=== PATIENT | male | born 1985 ===

== ENCOUNTER 2020-11-05 03:53 | Emergency (ER) | payer SELFPAY ==
[2020-11-05 05:13] LABS: Absolute Lymphocytes (CBC) 2.2 K/uL (0.7-4.9); Basophils % 0.5 % (0-1.3); Hematocrit 42.3 % (39.6-49.0); Lymphocytes % 37.7 % (15.3-44.8); MPV 11.3 fL (7.6-11.3); RBC Red Blood Cell Count 4.51 M/uL (4.33-5.43)
[2020-11-05 05:27] LABS: Protime INR 0.91
[2020-11-05 05:37] LABS: ALT/SGPT 40 U/L (12-78); AST/SGOT 14 U/L (15-37); Albumin 3.6 g/dL (3.4-5.0); Alkaline Phosphatase 75 U/L (45-117); BUN Blood Urea Nitrogen 13 mg/dL (7-18); Bicarbonate 26 mmol/L (21-32); Bilirubin Direct 0.1 mg/dL (0-0.2); Bilirubin Total 0.4 mg/dL (0.2-1.0); Glucose Level 115 mg/dL (74-106); Magnesium 1.9 mg/dL (1.8-2.4); NT PRO-BNP 20 pg/mL (<125); Potassium 3.5 mmol/L (3.5-5.1); Sodium Level 142 mmol/L (136-145); Troponin (Emerg Dept Use Only) < 0.02 ng/mL (0.0-0.045)
--- NOTE | 2020-11-05 06:14 | ER ---
Nurse's Notes [facility] Name: Khoa Smith Age: 35 yrs Sex: Male : 1985 Arrival Date: 11/05/2020 Time: 03:57 Bed 17 Private MD: Diagnosis: Anxiety Reaction, Resolved;Dyspnea-Resolved Presentation: 11/05 04:11 Chief complaint: Patient states: he woke up tonight feeling like he can't breath right bb he also had a similar incident about a month ago after his dad of COVID and he feels anxious. Coronavirus screen: At this time, the client does not indicate any symptoms associated with coronavirus-19. Ebola Screen: No symptoms or risks identified at this time. Initial Sepsis Screen: Does the patient meet any 2 criteria? No. Patient's initial sepsis screen is negative. Does the patient have a suspected source of infection? No. Patient's initial sepsis screen is negative. Risk Assessment: Do you want to hurt yourself or someone else? Patient reports no desire to harm self or others. Onset of symptoms was November 05, 2020. 04:11 Method Of Arrival: Ambulatory bb 04:11 Acuity: ELIZABETH 3 bb Historical: - Allergies: 04:14 No Known Allergies; bb - Home Meds: 04:14 None [Active]; bb - PMHx: 04:14 None; bb - PSHx: 04:14 None; bb - Immunization history:: Adult Immunizations unknown. - Social history:: Smoking status: Patient denies any tobacco usage or history of. Patient/guardian denies using alcohol. Screenin:55 Abuse screen: Denies threats or abuse. Denies injuries from another. Nutritional sf screening: No deficits noted. Tuberculosis screening: No symptoms or risk factors identified. Never had TB. Possible symptoms: None Risk factors: None. Fall Risk None identified. No fall in past 12 months (0 pts). No secondary diagnosis (0 pts). IV access (20 points). Ambulatory Aid- None/Bed Rest/Nurse Assist (0 pts). Gait- Normal/Bed Rest/Wheelchair (0 pts) Mental Status- Oriented to own ability (0 pts). Total Lechuga Fall Scale indicates No Risk (0-24 pts). Assessment: 04:55 General: Appears in no apparent distress. comfortable, Behavior is calm, cooperative. sf Pain: Denies pain. Neuro: No deficits noted. Level of Consciousness is awake, alert, Oriented to person, place, time, situation. Cardiovascular: No deficits noted. Patient's skin is warm and dry. Rhythm is sinus rhythm. Respiratory: No deficits noted. Airway is patent Respiratory effort is even, unlabored, Respiratory pattern is regular, symmetrical. GI: No deficits noted. No signs and/or symptoms were reported involving the gastrointestinal system. : No deficits noted. No signs and/or symptoms were reported regarding the genitourinary system. Derm: No deficits noted. No signs and/or symptoms reported regarding the dermatologic system. Musculoskeletal: No deficits noted. No signs and/or symptoms reported regarding the musculoskeletal system. 05:39 Reassessment: Patient appears in no apparent distress at this time. No changes from previously documented assessment. Patient and/or family updated on plan of care and expected duration. Pain level reassessed. Patient is alert, oriented x 3, equal unlabored respirations, skin warm/dry/pink. Vital Signs: 04:11 BP 146 / 94; Pulse 70; Resp 20 S; Temp 98.3(O); Pulse Ox 100% on R/A; Weight 96.62 kg bb (R); Height 5 ft. 8 in. (172.72 cm) (R); Pain 0/10; 04:30 BP 144 / 81; Pulse 68; Resp 16; Pulse Ox 100% ; sf 05:00 BP 142 / 83; Pulse 61; Resp 16; Pulse Ox 100% ; sf 05:30 BP 132 / 89; Pulse 71; Resp 16; Pulse Ox 100% ; sf 06:00 BP 131 / 84; Pulse 62; Resp 16; Pulse Ox 98% ; sf 06:30 BP 144 / 82; Pulse 67; Resp 16; Pulse Ox 99% ; sf 04:11 Body Mass Index 32.39 (96.62 kg, 172.72 cm) ED Course: 03:57 Patient arrived in ED. bp1 04:02 Ramu Bellamy MD is Attending Physician. mh7 04:14 Triage completed. bb 04:14 Arm band placed on Patient placed in an exam room, on a stretcher, on pulse oximetry. bb Family accompanied patient. 04:41 Benton Cobos RN is Primary Nurse. sf 04:55 Patient has correct armband on for positive identification. Bed in low position. Call sf light in reach. Side rails up X 1. property assessment monitor on. Pulse ox on. NIBP on. Door closed. Noise minimized. Visitors limited. Lights dimmed. Warm blanket given. Verbal reassurance given. 04:55 Inserted saline lock: 20 gauge in right antecubital area, using aseptic technique. oe Blood collected. 04:57 X-ray(s) taken. sf 04:58 Basic Metabolic Panel Sent. sf 04:58 CBC with Diff Sent. sf 04:58 LFT's Sent. sf 04:58 XRAY Chest (1 view) Sent. sf 05:05 XRAY Chest (1 view) In Process Unspecified. EDMS 06:46 No provider procedures requiring assistance completed. IV discontinued, intact, sf bleeding controlled, No redness/swelling at site. Pressure dressing applied. Administered Medications: No medications were administered Outcome: 06:14 Discharge ordered by . kim 06:46 Discharged to home ambulatory, with friend. sf 06:46 Condition: stable 06:46 Discharge instructions given to patient, friend, Instructed on discharge instructions, follow up and referral plans. Demonstrated understanding of instructions, follow-up care. 06:47 Patient left the ED. sf Signatures: Dispatcher [employer] EDMS Stefany Medina, RN RN Carlos Paula Brittany bp1 Holmes, Maurice, MD MD Benton Mendez RN RN sf
--- NOTE | 2020-11-05 06:15 | EDPHYS ---
Physician Documentation [facility] Name: Khoa Smith Age: 35 yrs Sex: Male : 1985 Arrival Date: 11/05/2020 Time: 03:57 Bed 17 Private MD: ED Physician Ramu Bellamy HPI: 11/05 05:00 This 35 yrs old Male presents to ER via Ambulatory with complaints of Breathing mh7 Difficulty. 05:00 The patient has shortness of breath at rest, during emotionally upset. Onset: The mh7 symptoms/episode began/occurred today. Duration: The symptoms are intermittent, with no pattern. The patient's shortness of breath is aggravated by nothing, is alleviated by nothing. Associated signs and symptoms: Pertinent positives: felt cold, anxious, Pertinent negatives: chest pain, non-productive cough, productive cough, diaphoresis, dizziness, fever, hemoptysis, loss of consciousness, nausea, numbness in extremities, visual changes, vomiting. Severity of symptoms: At their worst the symptoms were moderate today, in the emergency department the symptoms have improved markedly. Historical: - Allergies: 04:14 No Known Allergies; bb - Home Meds: 04:14 None [Active]; bb - PMHx: 04:14 None; bb - PSHx: 04:14 None; bb - Immunization history:: Adult Immunizations unknown. - Social history:: Smoking status: Patient denies any tobacco usage or history of. Patient/guardian denies using alcohol. ROS: 05:00 Eyes: Negative for injury, pain, redness, and discharge, ENT: Negative for injury, mh7 pain, and discharge, Neck: Negative for injury, pain, and swelling, Cardiovascular: Negative for chest pain, palpitations, and edema, Abdomen/GI: Negative for abdominal pain, nausea, vomiting, diarrhea, and constipation, Back: Negative for injury and pain, : Negative for injury, bleeding, discharge, and swelling, MS/Extremity: Negative for injury and deformity, Skin: Negative for injury, rash, and discoloration, Neuro: Negative for headache, weakness, numbness, tingling, and seizure, Psych: Negative for depression, anxiety, suicide ideation, homicidal ideation, and hallucinations, Allergy/Immunology: Negative for hives, rash, and allergies, Endocrine: Negative for neck swelling, polydipsia, polyuria, polyphagia, and marked weight changes, Hematologic/Lymphatic: Negative for swollen nodes, abnormal bleeding, and unusual bruising. 05:00 Constitutional: Negative for fatigue, fever, malaise, poor PO intake, weight loss. Exam: 05:00 Head/Face: Normocephalic, atraumatic. Eyes: Pupils equal round and reactive to light, mh7 extra-ocular motions intact. Lids and lashes normal. Conjunctiva and sclera are non-icteric and not injected. Cornea within normal limits. Periorbital areas with no swelling, redness, or edema. Neck: Trachea midline, no thyromegaly or masses palpated, and no cervical lymphadenopathy. Supple, full range of motion without nuchal rigidity, or vertebral point tenderness. No Meningismus. Chest/axilla: Normal chest wall appearance and motion. Nontender with no deformity. No lesions are appreciated. Cardiovascular: Regular rate and rhythm with a normal S1 and S2. No gallops, murmurs, or rubs. Normal PMI, no JVD. No pulse deficits. Respiratory: Lungs have equal breath sounds bilaterally, clear to auscultation and percussion. No rales, rhonchi or wheezes noted. No increased work of breathing, no retractions or nasal flaring. Abdomen/GI: Soft, non-tender, with normal bowel sounds. No distension or tympany. No guarding or rebound. No evidence of tenderness throughout. Back: No spinal tenderness. No costovertebral tenderness. Full range of motion. Skin: Warm, dry with normal turgor. Normal color with no rashes, no lesions, and no evidence of cellulitis. MS/ Extremity: Pulses equal, no cyanosis. Neurovascular intact. Full, normal range of motion. Neuro: Awake and alert, GCS 15, oriented to person, place, time, and situation. Cranial nerves II-XII grossly intact. Motor strength 5/5 in all extremities. Sensory grossly intact. Cerebellar exam normal. Normal gait. 05:00 Constitutional: The patient appears in no acute distress, alert, awake, anxious. 05:00 Psych: Behavior/mood is cooperative, anxious, Affect is calm, Oriented to person, place, time, Patient has no thoughts/intents to harm self or others. Judgement / Insight is normal. Memory is normal. Delusions/hallucinations are not present. Vital Signs: 04:11 BP 146 / 94; Pulse 70; Resp 20 S; Temp 98.3(O); Pulse Ox 100% on R/A; Weight 96.62 kg bb (R); Height 5 ft. 8 in. (172.72 cm) (R); Pain 0/10; 04:30 BP 144 / 81; Pulse 68; Resp 16; Pulse Ox 100% ; sf 05:00 BP 142 / 83; Pulse 61; Resp 16; Pulse Ox 100% ; sf 05:30 BP 132 / 89; Pulse 71; Resp 16; Pulse Ox 100% ; sf 06:00 BP 131 / 84; Pulse 62; Resp 16; Pulse Ox 98% ; sf 06:30 BP 144 / 82; Pulse 67; Resp 16; Pulse Ox 99% ; sf 04:11 Body Mass Index 32.39 (96.62 kg, 172.72 cm) MDM: 06:11 Differential diagnosis: Anemia Anxiety Reaction asthma, Bronchitis CHF exacerbation, [facility] Chronic Obstructive Pulmonary Disease Myocardial Infarction pneumonia, Pneumothorax Psychogenic pulmonary edema, reactive airway disease. Data reviewed: vital signs, nurses notes, lab test result(s), cardiac enzymes, CBC, electrolytes, EKG, radiologic studies, plain films. Data interpreted: Pulse oximetry: on room air is 100 %. Interpretation: normal. Counseling: I had a detailed discussion with the patient and/or guardian regarding: the historical points, exam findings, and any diagnostic results supporting the discharge/admit diagnosis, lab results, radiology results, the need for outpatient follow up, to return to the emergency department if symptoms worsen or persist or if there are any questions or concerns that arise at home. Response to treatment: the patient's symptoms have resolved after treatment, the patient's blood pressure is in an acceptable range, mental status has returned to baseline, the patient no longer shows bradycardia, the patient is not short of breath, the patient is not tachycardic, the patient's pain is gone, the patient's temperature has normalized, the patient is now symptom free, patient is well hydrated. 06:14 Patient medically screened. [facility] 11/05 04:27 Order name: Basic Metabolic Panel [facility] 11/05 04:27 Order name: CBC with Diff [facility] 11/05 04:27 Order name: LFT's [facility] 11/05 04:27 Order name: Magnesium; Complete Time: 05:50 [facility] 11/05 04:27 Order name: NT PRO-BNP; Complete Time: 05:50 7 11/05 04:27 Order name: PT-INR; Complete Time: 05:36 [facility] 11/05 04:27 Order name: Troponin (emerg Dept Use Only); Complete Time: 05:50 7 11/05 04:27 Order name: XRAY Chest (1 view) [facility] 11/05 04:27 Order name: EKG; Complete Time: 04:28 [facility] 11/05 04:28 Order name: Basic Metabolic Panel; Complete Time: 05:50 [facility] 11/05 04:28 Order name: CBC with Automated Diff; Complete Time: 05:36 [facility] 11/05 04:28 Order name: Liver (Hepatic) Function; Complete Time: 05:50 [facility] 11/05 05:58 Order name: SARS-COV-2 RT PCR; Complete Time: 06:08 [facility] 11/05 04:27 Order name: Cardiac monitoring; Complete Time: 04:41 [facility] 11/05 04:27 Order name: EKG - Nurse/Tech; Complete Time: 04:58 [facility] 11/05 04:27 Order name: IV Saline Lock; Complete Time: 04:58 7 11/05 04:27 Order name: Labs collected and sent; Complete Time: 04:58 [facility] 11/05 04:27 Order name: O2 Per Protocol; Complete Time: 04:41 7 11/05 04:27 Order name: O2 Sat Monitoring; Complete Time: 04:41 mh7 Administered Medications: No medications were administered Disposition: 11/05/20 06:14 Discharged to Home. Impression: Anxiety Reaction, Resolved, Dyspnea - Resolved. - Condition is Stable. - Discharge Instructions: Shortness of Breath, [id number], Panic Attacks, [id number]. - Medication Reconciliation Form, Thank You Letter, Antibiotic Education, Prescription Opioid Use form. - Follow up: Private Physician; When: 1 - 2 days; Reason: Worsening of condition, Recheck today's complaints, Continuance of care, Re-evaluation by your physician. - Problem is new. - Symptoms have improved. Signatures: Dispatcher [facility] Stefany Medina RN RN Ramu Bellamy MD MD [facility] Cobos, Benton, RN RN sf Corrections: (The following items were deleted from the chart) 05:07 04:28 CORONAVIRUS+MR.LAB.BRZ ordered. EDMT EDMS 06:47 06:14 11/05/2020 06:14 Discharged to Home. Impression: Anxiety Reaction, Resolved; sf Dyspnea - Resolved. Condition is Stable. Forms are Medication Reconciliation Form, Thank You Letter, Antibiotic Education, Prescription Opioid Use. Follow up: Private Physician; When: 1 - 2 days; Reason: Worsening of condition, Recheck today's complaints, Continuance of care, Re-evaluation by your physician. Problem is new. Symptoms have improved. mh7
[2020-11-05 08:35] VITALS: BP 146/94; TEMP 98.3; O2SAT 100
--- NOTE | 2020-11-06 07:16 | EKG ---
Test Date: 2020-11-05 Test Time: 04:40:49 Food Stand Manager: CECELIA MEASUREMENT RESULTS: Intervals: Rate: 63 KS: 164 QRSD: 90 QT: 370 QTc: 378 [place]: P: 55 KS: 164 QRS: 61 T: 48 INTERPRETIVE STATEMENTS: Normal sinus rhythm with sinus arrhythmia Normal ECG No previous ECG available for comparison Electronically Signed On 11-06-20 07:14:14 CDT by Vu Ceja
--- NOTE | 2020-11-06 12:20 | RAD REPORT ---
EXAM DESCRIPTION: XR Chest, 1 View CLINICAL HISTORY: The patient is 35 years old and is Male; SOB TECHNIQUE: Frontal view of the chest. COMPARISON: No relevant prior studies available. FINDINGS: Lungs: Unremarkable. No consolidation. Pleural space: Unremarkable. No pneumothorax. Heart: Unremarkable. Mediastinum: Unremarkable. Bones/joints: Unremarkable. IMPRESSION: No acute finding. Electronically signed by: Kevin John MD 11/05/2020 5:25 AM CDT Due to temporary technical issues with the PACS/Fluency reporting system, reports are being signed by the in house radiologist without review as a courtesy to ensure prompt reporting. The interpreting r adiologist is fully responsible for the content of the report.
== END 2020-11-05 06:47 | disposition home or self-care (01) ==
LOC: ER 03:53
DX: F41.1 Generalized anxiety disorder (principal); Z20.822 Contact with and (suspected) exposure to COVID-19
CPT/HCPCS: 36415; 71045; 80048; 80076; 83735; 83880; 84484; 85025; 85610; 93005; 99284; U0003